=== PATIENT | male | born 1960 | race Hispanic/Latino ===

== ENCOUNTER 2025-06-03 08:05 | Outpatient (CLI) | payer MEDICARE, OTHER ==
[2025-06-03 08:49] LABS: Cardiac Risk 2.9 (Less than 4.5); Cholesterol 110.0 mg/dl (< 200 Desired); HDL Cholesterol 38.0 mg/dL (>60 Neg Risk); LDL Cholesterol, Calculated 55.0 mg/dL; Triglycerides 84.0 mg/dL (Less than 150)
== END 2025-06-03 08:06 | disposition home or self-care (01) ==
LOC: MADLAB 08:05
PROVIDERS: ATTEND Physician Assistant Medical
DX: I25.2 Old myocardial infarction (principal)
CPT/HCPCS: 36415; 80061